=== PATIENT | male | born 1980 | race Asian ===

== ENCOUNTER 2023-11-09 11:43 | Inpatient (IN) | payer OTHER, MEDICAID ==
[~2023-11-09] VITALS: Ht 170.2 cm; Wt 80.4 kg
[2023-11-09 12:47] LABS: Basophils # (auto) 0 10 ^3/uL (0-0.2); Basophils % (auto) 0.8 % (0.0-2.0); Eosinophils # (auto) 0.5 10 ^3/uL (0-0.8); Eosinophils % (auto) 7.9 % (0.0-7.0); Hematocrit 32.5 % (41.0-53.0); Hemoglobin 10.6 g/dL (13.5-17.5); Lymphocytes # (auto) 0.8 10 ^3/uL (0.4-5.4); Lymphocytes % (auto) 12.8 % (10.0-50.0); Mean Corpuscular Hemoglobin 31.3 pg (28.0-32.0); Mean Corpuscular Hgb Conc. 32.7 g/dL (32.0-36.0); Mean Corpuscular Volume 95.7 fL (80.0-100.0); Monocytes # (auto) 0.5 10 ^3/uL (0-1.3); Monocytes % (auto) 8.7 % (0.0-12.0); Neutrophils # (auto) 4.2 10 ^3/uL (1.6-8.6); Neutrophils % (auto) 69.8 % (37.0-80.0); Red Blood Cells 3.39 10^6/uL (4.5-5.90); Red Cell Distribution Width 14.8 % (11.8-14.3); White Blood Cell 6.1 10^3/uL (4.4-10.8)
[2023-11-09 12:57] LABS: Alanine Aminotransferase 18 U/L (7-40); Albumin 4.5 g/dL (3.2-4.8); Alkaline Phosphatase 82 U/L (46-116); Anion Gap 10 (5-15); Aspartate Aminotransferase 17 U/L (13-40); BUN/Creatinine Ratio 4.2 (10.0-20.0); Blood Urea Nitrogen 55 mg/dL (9-23); Calcium 9.4 mg/dL (8.5-10.1); Carbon Dioxide 27 mmol/L (20-30); Chloride 101 mmol/L (98-107); Glucose 130 mg/dL (74-106); Potassium 4.6 mmol/L (3.5-5.1); Sodium 138 mmol/L (136-145)
[2023-11-09 12:58] LABS: Bilirubin, Total 0.2 mg/dL (0.2-1.0); Total Protein 6.9 g/dL (5.7-8.2)
[2023-11-09] MEDS ORDERED: HYDROcodone-ACET 5/325MG TAB PO PRN (15:45)
[2023-11-09] MEDS ORDERED: ACETAMINOPHEN 325 MG TAB PO PRN ×2 (15:45)
[2023-11-09] MEDS ORDERED: MORPHINE SULFATE INJ 2 MG/ml SYRG IV PRN (15:45)
[2023-11-09] MEDS ORDERED: ONDANSETRON HCL 4 MG/2 ML VIAL IV PRN (15:45)
[2023-11-09] MEDS ORDERED: CARV3.1240 PO (15:55)
[2023-11-09] MEDS ORDERED: ATOR20TA50 PO (15:55)
[2023-11-09] MEDS ORDERED: LOSA-535 PO (15:55)
[2023-11-09] MEDS ORDERED: NIFE90TA75 PO (15:55)
[2023-11-09] MEDS: DOXYCYCLINE 100 MG TAB/CAP PO ONE (16:10)
[2023-11-09 16:26] LABS: COVID19 ANTIGEN SOFIA FIA NEGATIVE (NEGATIVE)
[2023-11-09 16:40] LABS: Rapid Influenza A Negative (Negative); Rapid Influenza B Negative (Negative)
[2023-11-09] MEDS: hydrALAZINE HCL 20 MG/ML VL IV PRN (22:53)
[2023-11-09] MEDS: DOXYCYCLINE 100 MG TAB/CAP PO SCH (22:53)
[2023-11-09] MEDS: CARVEDILOL 3.125 MG TAB PO SCH (22:53)
[2023-11-10] VITALS (7 sets, daily range): BP systolic 134–159; BP diastolic 75–106; PULSE 76–98; RESP 14–21; TEMP 97.4–98.4; O2SAT 94–98
[2023-11-10] MEDS: DOXYCYCLINE 100 MG TAB/CAP PO SCH (00:34)
[2023-11-10] MEDS: cloNIDine HCL 0.1 MG TAB PO ONE (00:40)
[2023-11-10] MEDS ORDERED: B-CO-5 OR (03:18)
[2023-11-10] MEDS ORDERED: CLON0.2D6 PO (03:18)
[2023-11-10 06:36] LABS: Basophils # (auto) 0 10 ^3/uL (0-0.2); Basophils % (auto) 0.6 % (0.0-2.0); Eosinophils # (auto) 0.5 10 ^3/uL (0-0.8); Eosinophils % (auto) 8.8 % (0.0-7.0); Hematocrit 30.4 % (41.0-53.0); Hemoglobin 9.7 g/dL (13.5-17.5); Lymphocytes # (auto) 0.9 10 ^3/uL (0.4-5.4); Lymphocytes % (auto) 16.9 % (10.0-50.0); Mean Corpuscular Hgb Conc. 32.1 g/dL (32.0-36.0); Mean Corpuscular Volume 96.5 fL (80.0-100.0); Monocytes # (auto) 0.5 10 ^3/uL (0-1.3); Monocytes % (auto) 9.2 % (0.0-12.0); Neutrophils # (auto) 3.5 10 ^3/uL (1.6-8.6); Neutrophils % (auto) 64.5 % (37.0-80.0); Nucleated Red Blood Cells % 0.1 %; Red Blood Cells 3.15 10^6/uL (4.5-5.90); White Blood Cell 5.4 10^3/uL (4.4-10.8)
[2023-11-10 06:56] LABS: Alanine Aminotransferase 21 U/L (7-40); Albumin 4.2 g/dL (3.2-4.8); Alkaline Phosphatase 74 U/L (46-116); Anion Gap 14 (5-15); Aspartate Aminotransferase 12 U/L (13-40); BUN/Creatinine Ratio 4.3 (10.0-20.0); Bilirubin, Total 0.2 mg/dL (0.2-1.0); Blood Urea Nitrogen 66 mg/dL (9-23); Calcium 9.2 mg/dL (8.5-10.1); Carbon Dioxide 24 mmol/L (20-30); Chloride 101 mmol/L (98-107); Glucose 107 mg/dL (74-106); Potassium 4.4 mmol/L (3.5-5.1); Sodium 139 mmol/L (136-145); Total Protein 6.7 g/dL (5.7-8.2)
[2023-11-10] MEDS: NIFEdipine ER 30 MG TAB PO SCH (12:08)
[2023-11-10] MEDS: ENOXAPARIN SOD 30 MG/0.3 ML SYRINGE SC SCH (12:08)
[2023-11-10] MEDS ORDERED: diphenhdrAMINE HCL 25 MG CAP PO PRN (16:00)
[2023-11-10] MEDS: DOXYCYCLINE 100MG/250ML 250 ML IV SCH (22:06)
[2023-11-11] VITALS (8 sets, daily range): BP systolic 133–164; BP diastolic 75–104; PULSE 77–84; RESP 14–19; TEMP 97.2–98.4; O2SAT 92–98
[2023-11-11] MEDS: SODIUM CHL 0.9% 1000 ML BAG XX ONE (07:00)
[2023-11-11] MEDS: EPOETIN ALFA-EPBX 4,000 UNIT/ML VIAL SC ONE (21:00)
[2023-11-12 01:20] VITALS: BP 159/100; PULSE 82; RESP 18; TEMP 97.9; O2SAT 97
[2023-11-12 05:00] VITALS: BP 142/85; PULSE 83; RESP 17; TEMP 97.2; O2SAT 99
[2023-11-12 08:10] VITALS: BP 139/71; PULSE 80; RESP 17; TEMP 98; O2SAT 93
[2023-11-12 08:35] VITALS: BP 139/71; PULSE 80; RESP 17; TEMP 98; O2SAT 93
[2023-11-12] MEDS ORDERED: DOXY-346 PO (09:04)
[2023-11-12 10:47] VITALS: BP 139/71; PULSE 80; RESP 17; TEMP 36.7; O2SAT 93
[2023-11-12] MEDS ORDERED: EPOETIN ALFA-EPBX 4,000 UNIT/ML VIAL SC ONE (21:00)
== END 2023-11-12 13:30 | disposition home or self-care (01) | DRG 177 ==
LOC: ER 11:43 → EDBD 11:43 → EAST 15:55 → OVERFLOW 15:55 → EAST 23:30
PROVIDERS: ADMIT Registered Nurse; ATTEND Family Medicine
PROC: 5A1D70Z Performance of Urinary Filtration, Intermittent, Less than 6 Hours Per Day (ICD-10-PCS; principal; 2023-11-11)
DX: J15.69 Pneumonia due to other Gram-negative bacteria (principal); J96.00 Acute respiratory failure, unspecified whether with hypoxia or hypercapnia; N18.6 End stage renal disease; I13.2 Hypertensive heart and chronic kidney disease with heart failure and with stage 5 chronic kidney disease, or end stage renal disease; N25.81 Secondary hyperparathyroidism of renal origin; I50.32 Chronic diastolic (congestive) heart failure; J15.9 Unspecified bacterial pneumonia; Z20.822 Contact with and (suspected) exposure to COVID-19; D63.1 Anemia in chronic kidney disease; E83.39 Other disorders of phosphorus metabolism; Z82.3 Family history of stroke; Z80.3 Family history of malignant neoplasm of breast; Z80.8 Family history of malignant neoplasm of other organs or systems; I25.2 Old myocardial infarction; Z99.2 Dependence on renal dialysis; Z91.158 Patient's noncompliance with renal dialysis for other reason
CPT/HCPCS: 36415; 71045; 80053; 82962; 84484; 85018; 85025; 87040; 87081; 87426; 87804; 96374; G0378; J3490

== ENCOUNTER 2025-06-07 13:16 | Emergency (ER) | payer OTHER, MEDICAID ==
[~2025-06-07] VITALS: Ht 170.2 cm; Wt 75.5 kg
[~2025-06-07 13:16] MED LIST: ATOR20TA50 PO; B-CO-5 OR; CARV3.1240 PO; CLON0.2D6 PO; DOXY-346 PO; LOSA-535 PO; NIFE90TA75 PO
[2025-06-07 13:20] VITALS: BP 167/134; PULSE 90; RESP 18; TEMP 98.5; O2SAT 96
--- NOTE | 2025-06-07 14:21 | ED.PDOC ---
General HPI Comments A 44 YEAR OLD MALE PRESENTS TO THE ED WITH COMPLAINT OF HEMATURIA. PATIENT REPORTS THAT HE HAD AN EPISODE OF HEMATURIA LAST NIGHT WITH ASSOCIATED DECREASED URINE OUTPUT, CONTINUING INTO THIS MORNING. PATIENT RELAYS THAT HE IS AN DIALYSIS PATIENT WITH HIS LAST SESSION BEING YESTERDAY. PATIENT STATES THAT HE HAS HAD YEARS OF DECREASED URINATION, BUT NEVER HEMATURIA BEFORE. PATIENT DENIES FEVER, CHILLS, DYSURIA, SHORTNESS OF BREATH, CHEST PAIN, ABDOMINAL PAIN, NAUSEA, VOMITING, HEADACHE, OR OTHER COMPLAINTS. NO OTHER SYMPTOMS OR MODIFYING FACTORS AT THIS TIME. PATIENT IS ALERT, ORIENTED X 4, AND HAS STEADY GAIT. Chief Complaint: Urinary Time Seen by MD: 14:18 Primary Care Provider: MEL Reviewed notes: Nurses Notes, Medications, Allergies Allergies: Coded Allergies: NO KNOWN ALLERGIES (Unverified , 11/09/23) Home Meds Active Scripts Sulfamethoxazole W/Trimethopri (Bactrim Ds Tablet) 1 Tab Tb, 1 TAB PO BID for 7 Days, #14 TAB Prov:HE EM 06/07/25 Doxycycline (Monohydrate) (Doxycycline) 100 Mg Tab, 100 MG PO BID, #20 TAB Prov:MERYL LAM MD 11/12/23 Reported Medications B-Complex W/ C & Folic Acid (Yazmin-Marques) Tab, 1 OR DAILY, TAB 11/10/23 Clonidine Hydrochloride (Clonidine Hcl) 0.2 Mg/24 Hr Dis, 0.2 MG PO BID, MG 11/10/23 Nifedipine (Nifedipine Er) 90 Mg Tab, 1 TAB PO DAILY 11/09/23 Losartan Potassium (Losartan Potassium) 100 Mg Tab, 1 TAB PO DAILY 11/09/23 Atorvastatin Calcium (ATORVASTATIN CALCIUM) 20 Mg Tab, 1 TAB PO DAILY 11/09/23 Carvedilol (Carvedilol) 3.125 Mg Tab, 1 TAB PO BID 11/09/23 Information Source: Patient Mode of Arrival: Ambulatory Severity: Moderate Inability to void: Moderate Timing: Hours Duration: Since onset Prehospital treatment: None Onset: Spontaneous Symptoms: Hematuria History of: BPH, Other (ESRD) Location: Suprapubic Penile discharge: None Modifying factors: None associated signs and symptoms: Hematuria Past Medical History PAST MEDICAL HISTORY: ESRD, HTN Surgical History: Denies all surgeries Family History Family History: Reviewed,noncontributory to illness Social History Smoker: Non-Smoker Alcohol: Denies ETOH Use Drugs: Denies Drug Use Lives In: Home Constitutional: denies: chills, diaphoresis, fatigue, fever, malaise, sweats, weakness, others EENTM: denies: blurred vision, double vision, ear bleeding, ear discharge, ear drainage, ear pain, ear ringing, eye pain, eye redness, hearing loss, mouth pain, mouth swelling, nasal discharge, nose bleeding, nose congestion, nose pain , photophobia, tearing, throat pain, throat swelling, voice changes, others Respiratory: denies: cough, hemoptysis, orthopnea, SOB at rest, shortness of breath, SOB with excertion, stridor, wheezing, others Cardiovascular: denies: chest pain, dizzy spells, diaphoresis, Dyspnea on exertion, edema, irregular heart beat, left arm pain, lightheadedness, palpitations, PND, syncope, others Gastrointestinal: denies: abdomen distended, abdominal pain, blood streaked bowels, constipated, diarrhea, dysphagia, difficulty swallowing, hematemesis, melena, nausea, poor appetite, poor fluid intake, rectal bleeding, rectal pain, vomiting, others Genitourinary: reports: hematuria, others (DECREASED URINE OUTPUT); denies: burning, dysuria, flank pain, frequency, incontinence, penile discharge, penile sore, pain, testicle pain, testicle swelling, urgency Neurological: denies: dizziness, fainting, headache, left sided numbness, left sided weakness, numbness, paresthesia, pre-existing deficit, right sided numbness, right sided weakness, seizure, speech problems, tingling, tremors, weakness, others Musculoskeletal: denies: back pain, gout, joint pain, joint swelling, muscle pain, muscle stiffness, neck pain, others Integumetry: denies: bruises, change in color, change in hair/nails, dryness, laceration, lesions, lumps, rash, wounds, others Allergic/Immunocompromised: denies: Difficulty Healing, Frequent Infections, Hives, Itching, others Hematologic/Lymphatic: denies: anemia, blood clots, easy bleeding, easy bruising, swollen glands, others Endocrine: denies: excessive hunger, excessive sweating, excessive thirst, excessive urination, flushing, intolerance to cold, intolerance to heat, unexplained weight gain, unexplained weight loss, others Psychiatric: denies: anxiety, bipolar disorder, depression, hopeless, panic disorder, schizophrenia, sleepless, suicidal, others All Other Systems: Reviewed and Negative Physical Exam General Appearance: No Apparent Distress, Normal HEENT: Normal ENT Inspection, PERRL/EOMI, Pharynx Normal, TMs Normal Neck: Full Range of Motion, Non-Tender, Normal, Normal Inspection Respiratory: Chest Non-Tender, Lungs Clear, No Accessory Muscle Use, No Respiratory Distress, Normal Breath Sounds Cardiovascular: No Edema, No JVD, No Murmur, No Gallop, Normal Peripheral Pulses, Regular Rate/Rhythm Breast Exam: Deferred Gastrointestinal: No Organomegaly, Non Tender, No Pulsatile Mass, Normal Bowel Sounds, Soft Genitalia: Deferred Pelvic: Normal External Exam, Tender Uterus (WITH BLADDER DISTENTION. ) Rectal: Deferred Extremities: No calf tenderness, Normal capillary refill, Normal inspection, Normal range of motion, Non-tender, No pedal edema Musculoskeletal : Apperance: Normal Neurologic: Alert, hospital medicine director II-XII nml as Tested, No Motor Deficits, Normal Affect, Normal Mood, No Sensory Deficits Cerebellar Function: Normal Reflexes: Normal Skin: Dry, Normal Color, Warm Peripheral Pulses: 2+ carotid (R), 2+ carotid (L) Lymphatic: No Adenopathy Was a procedure done? Was a procedure done?: No Differential Diagnosis Kidney stone (Female): N/A Kidney stone (Male): Urinary obstruction, Urolithiasis, Urinary tract infection Urinary Problem (Male): Urinary Retention, UTI X-Ray, Labs, Meds, VS Vital Signs Date Time Temp Pulse Resp B/P (MAP) Pulse Ox O2 Delivery O2 Flow Rate FiO2 06/07/25 13:20 98.5 90 18 167/134 96 98.5 X-Ray, Labs, Meds, VS Comment EXTERNAL MEDICAL RECORDS REVIEWED: [NONE] INDEPENDENT HISTORIANS: [NONE] SOCIAL DETERMINANTS OF HEALTH: [NONE] LABS ORDERED: UA REVIEWED AND INTERPRETED RESULTS: NONE IMAGING ORDERED: NONE TREATMENTS ORDERED: NONE PROCEDURES PERFORMED: NONE CRITICAL CARE TIME: NONE 1508: PATIENT REPORTS HE HAS BEEN UNABLE TO URINATE ON HIS OWN AT THIS TIME TO PROVIDE A SAMPLE AND PATIENT DECLINES HAVING A FREDERICK CATHETER INSERTED FOR SAMPLE RETRIEVAL. PATIENT ADVISED TO TAKE ANTIBIOTIC PRESCRIBED AND IF NO IMPROVEMENT IN SYMPTOMS, RETURN TO THE ED FOR FURTHER EVALUATION. 1518: PATIENT AGREES TO FREDERICK CATHETER INSERTION AT THIS TIME. 1525: PATIENT REFUSED TO HAVE FREDERICK CATHETER INSERTED BY NURSE AT TIME OF INSERTION. PATIENT SOON AFTER ELOPED FROM ED. I HAVE DISCUSSED THE PATIENT WITH THE ATTENDING PHYSICIAN DR. COX AND HE AGREES WITH THE PATIENT'S PLAN OF CARE AND DISPOSITION. Time of 1ST Reevaluation: 16:16 Reevaluation 1ST: Unchanged Patient Education/Counseling: Diagnosis, Treatment Family Education/Counseling: Diagnosis, Treatment, No Family Present SEPSIS Sepsis Screen Date sepsis recognized/suspect: Jun 07, 2025 Time Sepsis recognized/suspect: 1322 Recent Procedure: No On Antibiotic Therapy: No Respiratory Rate >20: No Heart Rate >90: No Temp<36 C (96.8 F) or >38.3 C: No SBP <90 or MAP <65 mmHG: No New Acute Mental Status Change: No Is the patient on CPAP, BIPAP,: No Physician Orders Urinalysis (06/07/25 14:08) Insert/Manage Urinary Catheter QSHIFT (06/07/25 15:18) Vital Signs Date Time Temp Pulse Resp B/P (MAP) Pulse Ox O2 Delivery O2 Flow Rate FiO2 06/07/25 13:20 98.5 90 18 167/134 96 98.5 Departure 1 Departure Time of Disposition: 16:16 Impression: Primary Impression: Urinary retention Additional Impression: UTI symptoms Disposition: 07 LEFT AWOL/ELOPED Condition: Fair e-Prescriptions Sulfamethoxazole W/Trimethopri (Bactrim Ds Tablet) 1 Tab Tb 1 TAB PO BID for 7 Days, #14 TAB Prov: HE EM 06/07/25 Critical Care Note Critical Care Time?: No Stability Stability form required: No Heart Score Heart Score: Heart Score Response (Comments) Value History N/A 0 EKG N/A 0 Age N/A 0 Risk Factors N/A 0 Troponin N/A 0 Total 0 I personally scribed for HE EM ([email or web address]) on 06/07/25 at 14:21. Electronically submitted by Carlos Baig ([email or web address]). I personally scribed for HE ME ([email or web address]) on 06/07/25 at 15:12. Electronically submitted by Carlos Baig ([email or web address]). I personally scribed for HE EM ([email or web address]) on 06/07/25 at 15:18. Electronically submitted by Carlos Baig ([email or web address]). I personally scribed for HE EM ([email or web address]) on 06/07/25 at 15:57. Electronically submitted by Carlos Baig ([email or web address]). HE EM Jun 07, 2025 14:21
[2025-06-07] MEDS ORDERED: BACDST PO (15:58)
== END 2025-06-07 16:18 | disposition left against medical advice (07) ==
LOC: ER 13:16
DX: R33.9 Retention of urine, unspecified (principal); I10 Essential (primary) hypertension; Z79.899 Other long term (current) drug therapy